=== PATIENT | female | born 1990 | race Caucasian/White ===

== ENCOUNTER 2017-11-09 10:57 | Outpatient (CLI) | END 2017-11-09 13:05 | disposition home or self-care (01) ==

== ENCOUNTER 2017-11-09 13:07 | Emergency (ER) | END 2017-11-09 19:57 | disposition home or self-care (01) ==

== ENCOUNTER 2018-01-11 09:24 | Outpatient (CLI) | END 2018-01-11 13:16 | disposition home or self-care (01) ==

== ENCOUNTER 2018-01-17 09:30 | Inpatient (IN) | END 2018-01-20 14:14 | disposition home or self-care (01) | DRG 775 ==